=== PATIENT | male | born 1935 | race African-American/Black ===

== ENCOUNTER 2020-03-23 09:02 | Emergency (ER) | payer MEDICARE, OTHER ==
[2020-03-23] MEDS ORDERED: Acetaminophen 325 MG TAB ONE (09:35)
[2020-03-23] MEDS ORDERED: Ibuprofen 200 MG TAB ONE (09:35)
--- NOTE | 2020-03-23 09:53 | RAD ---
EXAM: 2 views of the right hip HISTORY: Right hip pain after fall COMPARISON: Pelvic radiograph 03/23/2020 FINDINGS: 2 views of the right hip shows questionable disruption of the lateral cortex in the region of the femoral neck. Mild hip degenerative changes are seen. No soft tissue swelling is present. Vascular calcifications are seen. Degenerative changes are seen in the lumbar spine. IMPRESSION: Possible right femoral neck fracture. A CT the right hip is recommended for further evalu ation.
--- NOTE | 2020-03-23 09:55 | RAD ---
Exam: Single view of the pelvis HISTORY: Right hip pain after fall 10 days ago COMPARISON: None FINDINGS: A single view the pelvis shows a questionable overlap of the lateral cortex of the femoral neck which could represent a minimally displaced fracture. No dislocation is seen. Mild degenerative changes are seen in both hips. Moderate degenerative changes are seen in the lumbar spin e. Vascular calcifications are seen. IMPRESSION: Possible right femoral neck fracture. A CT of the right hip is recommended for further ev aluation.
--- NOTE | 2020-03-23 11:18 | CT ---
EXAM: CT right hip without contrast HISTORY: Right hip pain after fall 2010 days ago COMPARISON: Pelvic and hip radiographs 03/23/2020 TECHNIQUE: Multiple contiguous axial images were obtained and a CT of the right hip without contrast. Sagittal and coronal reformats were performed. FINDINGS: No pelvic or hip fractures are seen. . There are mild degenerative changes in the right hi p. Atherosclerotic calcifications are seen. The visualized intrapelvic structures are unremarkable. Ther e is mild soft tissue swelling overlying the greater trochanter. IMPRESSION: No evidence of hip fracture.
== END 2020-03-23 11:36 | disposition home or self-care (01) ==
LOC: ERS 09:02
DX: S70.01XA Contusion of right hip, initial encounter (principal); E78.5 Hyperlipidemia, unspecified; E11.9 Type 2 diabetes mellitus without complications; I10 Essential (primary) hypertension; W01.10XA Fall on same level from slipping, tripping and stumbling with subsequent striking against unspecified object, initial encounter
CPT/HCPCS: 72170

== ENCOUNTER 2022-01-31 10:22 | Inpatient (IN) | payer MEDICARE, OTHER ==
[2022-01-31 12:13] LABS: #Eosinphils 0.1 thou/uL (0.0-0.7); #Lymphocytes 1.4 thou/uL (1.20-3.40); #Monocytes 0.6 thou/uL (0.11-0.59); #Neutrophils 4.7 thou/uL (1.40-6.50); %Basophils 0.4 % (0.0-1.0); %Eosinophils 1.8 % (0.0-10.0); %Monocytes 8.3 % (0.0-10.0); %Neutrophils 69.5 % (42.0-75.0); Hemoglobin 11.9 g/dL (14.0-18.0); Mean Corpuscular HGB CONC 32.1 g/dL (32.0-36.0); Mean Corpuscular Hemoglobin 30.3 pg (27.0-31.0); Mean Corpuscular Volume 94.5 fl (78.0-98.0); Mean Platelet Volume 8.8 fL (7.4-10.4); Platelet Count 126 thou/uL (130-400); RBC Distribution Width 11.3 % (11.5-14.5); Red Blood Cell (RBC) Count 3.93 mill/uL (4.70-6.10); White Blood Cell (WBC) Count 6.8 thou/uL (4.8-10.8)
[2022-01-31 12:36] LABS: ALT (SGPT) 41 U/L (8-55); AST (SGOT) 47 U/L (5-34); Albumin 4.1 g/dL (3.4-4.8); Alkaline Phosphatase 66 U/L (40-110); Anion Gap 16 mmol/L (10-20); BUN (Urea Nitrogen) 19 mg/dL (8.4-25.7); Bilirubin, Total 0.9 mg/dL (0.2-1.2); CK (CPK) 190 U/L (30-200); Calc. Creatinine Clearance 0 mL/min (70-130); Calcium 9.8 mg/dL (7.8-10.44); Carbon Dioxide 24 mmol/L (23-31); Chloride 108 mmol/L (98-107); Estimated GFR 55; Globulin 3.4 g/dL (2.4-3.5); Glucose 67 mg/dL (83-110); Lipase 36 U/L (8-78); Potassium 3.8 mmol/L (3.5-5.1); Protein, Total 7.5 g/dL (5.8-8.1); Sodium 144 mmol/L (136-145)
[2022-01-31] MEDS ORDERED: hydrALAZINE 20 MG/ML VIAL ONE (12:36)
[2022-01-31 13:36] LABS: SARS-CoV-2 NAA Rapid Test Not Detected (NotDetected)
[2022-01-31 13:37] LABS: Bacteria/HPF None Seen HPF (None Seen); Bilirubin Negative (Negative); Blood, Urine 3+ (Negative); Clarity Turbid (Clear); Glucose, Urine (Dipstick) Normal (Negative); Ketone, Urine Trace mg/dL (Negative); Leukocyte 75 Leu/uL (Negative); Nitrite Negative (Negative); Protein, Urine (Dipstick) Negative (Neg-Trace); RBC/HPF Greater than 50 HPF (0-3); Specific Gravity, Urine 1.008 (1.002-1.036); Squamous Epithelial 0-3 HPF (0-3); Urobilinogen Normal mg/dL (Less than 2); pH, Urine 7.5 (5.0-9.0)
[2022-01-31] MEDS ORDERED: Ondansetron ODT 4 MG TAB PO PRN (15:50)
[2022-01-31] MEDS ORDERED: Acetaminophen 325 MG TAB PO PRN (15:50)
[2022-01-31] MEDS ORDERED: Ondansetron PF 4 MG/2 ML Vial IVP PRN (15:50)
[2022-01-31] MEDS ORDERED: Acetaminophen 650 MG Suppository PR PRN (15:50)
[2022-01-31 17:08] LABS: Hemoglobin A1c 5.1 % (4.0-6.0)
[2022-01-31 17:25] VITALS: BMI 17.2
[2022-01-31] MEDS ORDERED: Lactated Ringer's 1,000 ML IV SCH (17:30)
[2022-01-31 18:19] LABS: Troponin I 0.028 ng/mL (< 0.028)
[2022-01-31] MEDS: Atorvastatin Calcium 40 MG TAB PO SCH (21:45)
[2022-01-31] MEDS: Metoprolol Tartrate 100 MG TAB PO SCH (21:46)
[2022-02-01 05:10] LABS: #Eosinphils 0.1 thou/uL (0.0-0.7); #Monocytes 0.5 thou/uL (0.11-0.59); #Neutrophils 5.1 thou/uL (1.40-6.50); %Basophils 0.4 % (0.0-1.0); %Eosinophils 1.6 % (0.0-10.0); %Lymphocytes 14.9 % (21.0-51.0); %Monocytes 7.5 % (0.0-10.0); %Neutrophils 75.6 % (42.0-75.0); Hemoglobin 11.4 g/dL (14.0-18.0); Mean Corpuscular HGB CONC 31.4 g/dL (32.0-36.0); Mean Corpuscular Hemoglobin 29.7 pg (27.0-31.0); Mean Corpuscular Volume 94.6 fl (78.0-98.0); Mean Platelet Volume 9.1 fL (7.4-10.4); Platelet Count 167 thou/uL (130-400); RBC Distribution Width 11.4 % (11.5-14.5); Red Blood Cell (RBC) Count 3.84 mill/uL (4.70-6.10); White Blood Cell (WBC) Count 6.8 thou/uL (4.8-10.8)
[2022-02-01 05:25] LABS: Anion Gap 11 mmol/L (10-20); BUN (Urea Nitrogen) 25 mg/dL (8.4-25.7); Calc. Creatinine Clearance 28 mL/min (70-130); Calcium 9.2 mg/dL (7.8-10.44); Carbon Dioxide 29 mmol/L (23-31); Chloride 110 mmol/L (98-107); Estimated GFR 55; Glucose 84 mg/dL (83-110); Sodium 146 mmol/L (136-145)
[2022-02-01] MEDS ORDERED: FLU VACC QS2022-23(65YR UP)/PF 240 MCG/0.7 ML SYRINGE IM ONE (09:00)
[2022-02-01] MEDS ORDERED: Enoxaparin Sodium 40 MG/0.4 ML SYRINGE SC SCH (09:00)
[2022-02-01] MEDS ORDERED: hydrALAZINE 25 MG TAB PO SCH (09:00)
[2022-02-01] MEDS: Ferrous Sulfate 325 MG TAB PO SCH (10:22)
[2022-02-01] MEDS: Metoprolol Tartrate 100 MG TAB PO SCH ×2 (10:22→21:32)
[2022-02-01] MEDS: metFORMIN 500 MG TAB PO SCH (10:22)
[2022-02-01] MEDS: Multivit, Therapeutic 1 TAB PO SCH (10:22)
[2022-02-01] MEDS: Lisinopril 20 MG TAB PO SCH (10:22)
[2022-02-01] MEDS: Furosemide 20 MG TAB PO SCH (10:22)
[2022-02-01] MEDS: Potassium Chloride 20 MEQ TAB PO SCH (10:22)
[2022-02-01] MEDS: Senokot S 8.6-50 MG TAB PO SCH (10:22)
[2022-02-01] MEDS: Tamsulosin HCl 0.4 MG CAP PO SCH (10:23)
[2022-02-01] MEDS: Atorvastatin Calcium 40 MG TAB PO SCH (21:32)
[2022-02-02 08:10] LABS: Anion Gap 8 mmol/L (10-20); BUN (Urea Nitrogen) 27 mg/dL (8.4-25.7); Calc. Creatinine Clearance 27 mL/min (70-130); Calcium 8.6 mg/dL (7.8-10.44); Carbon Dioxide 29 mmol/L (23-31); Chloride 110 mmol/L (98-107); Estimated GFR 52; Glucose 89 mg/dL (83-110); Magnesium 1.8 mg/dL (1.6-2.6); Potassium 3.7 mmol/L (3.5-5.1); Sodium 143 mmol/L (136-145)
[2022-02-02] MEDS: Ferrous Sulfate 325 MG TAB PO SCH (09:48)
[2022-02-02] MEDS: Furosemide 20 MG TAB PO SCH (09:48)
[2022-02-02] MEDS: Metoprolol Tartrate 100 MG TAB PO SCH ×2 (09:48→20:27)
[2022-02-02] MEDS: Multivit, Therapeutic 1 TAB PO SCH (09:48)
[2022-02-02] MEDS: metFORMIN 500 MG TAB PO SCH (09:48)
[2022-02-02] MEDS: Lisinopril 20 MG TAB PO SCH (09:48)
[2022-02-02] MEDS: Enoxaparin Sodium 30 MG/0.3 ML SYRINGE SC SCH (09:48)
[2022-02-02] MEDS: Senokot S 8.6-50 MG TAB PO SCH (09:49)
[2022-02-02] MEDS: Tamsulosin HCl 0.4 MG CAP PO SCH (09:49)
[2022-02-02] MEDS: Potassium Chloride 20 MEQ TAB PO SCH (09:49)
[2022-02-02] MEDS: NIFEdipine XL 30 MG TAB PO SCH (09:49)
[2022-02-02] MEDS ORDERED: Lactated Ringer's 500 ML IV SCH (13:15)
[2022-02-02] MEDS: Atorvastatin Calcium 40 MG TAB PO SCH (20:27)
[2022-02-03 07:06] LABS: Anion Gap 12 mmol/L (10-20); BUN (Urea Nitrogen) 21 mg/dL (8.4-25.7); Calc. Creatinine Clearance 31 mL/min (70-130); Calcium 8.9 mg/dL (7.8-10.44); Carbon Dioxide 23 mmol/L (23-31); Chloride 109 mmol/L (98-107); Estimated GFR 63; Glucose 90 mg/dL (83-110); Potassium 3.9 mmol/L (3.5-5.1); Sodium 140 mmol/L (136-145)
[2022-02-03] MEDS: Potassium Chloride 20 MEQ TAB PO SCH (08:47)
[2022-02-03] MEDS: Senokot S 8.6-50 MG TAB PO SCH (08:47)
[2022-02-03] MEDS: Lisinopril 20 MG TAB PO SCH (08:47)
[2022-02-03] MEDS: Metoprolol Tartrate 100 MG TAB PO SCH ×2 (08:47→19:49)
[2022-02-03] MEDS: Ferrous Sulfate 325 MG TAB PO SCH (08:47)
[2022-02-03] MEDS: NIFEdipine XL 30 MG TAB PO SCH (08:48)
[2022-02-03] MEDS: Multivit, Therapeutic 1 TAB PO SCH (08:48)
[2022-02-03] MEDS: metFORMIN 500 MG TAB PO SCH (08:48)
[2022-02-03] MEDS: Furosemide 20 MG TAB PO SCH (08:48)
[2022-02-03] MEDS: Enoxaparin Sodium 30 MG/0.3 ML SYRINGE SC SCH (08:48)
[2022-02-03] MEDS: Tamsulosin HCl 0.4 MG CAP PO SCH (08:48)
[2022-02-03] MEDS: Atorvastatin Calcium 40 MG TAB PO SCH (19:49)
[2022-02-04 06:44] LABS: Anion Gap 12 mmol/L (10-20); BUN (Urea Nitrogen) 30 mg/dL (8.4-25.7); Calc. Creatinine Clearance 28 mL/min (70-130); Calcium 9.3 mg/dL (7.8-10.44); Carbon Dioxide 26 mmol/L (23-31); Chloride 108 mmol/L (98-107); Estimated GFR 53; Glucose 102 mg/dL (83-110); Sodium 142 mmol/L (136-145)
[2022-02-04] MEDS: Multivit, Therapeutic 1 TAB PO SCH (08:18)
[2022-02-04] MEDS: NIFEdipine XL 30 MG TAB PO SCH ×2 (08:18→10:05)
[2022-02-04] MEDS: Furosemide 20 MG TAB PO SCH (08:18)
[2022-02-04] MEDS: Senokot S 8.6-50 MG TAB PO SCH (08:18)
[2022-02-04] MEDS: Ferrous Sulfate 325 MG TAB PO SCH (08:18)
[2022-02-04] MEDS: Lisinopril 20 MG TAB PO SCH (08:18)
[2022-02-04] MEDS: metFORMIN 500 MG TAB PO SCH (08:18)
[2022-02-04] MEDS: Tamsulosin HCl 0.4 MG CAP PO SCH (08:18)
[2022-02-04] MEDS: Metoprolol Tartrate 100 MG TAB PO SCH ×2 (08:18→20:22)
[2022-02-04] MEDS: Potassium Chloride 20 MEQ TAB PO SCH (08:18)
[2022-02-04] MEDS: Enoxaparin Sodium 30 MG/0.3 ML SYRINGE SC SCH (08:18)
[2022-02-04] MEDS ORDERED: NIFEdipine XL 30 MG TAB PO SCH (09:30)
[2022-02-04 19:19] VITALS: TEMP 98
[2022-02-04] MEDS: Atorvastatin Calcium 40 MG TAB PO SCH (20:21)
[2022-02-05 07:06] LABS: Anion Gap 11 mmol/L (10-20); BUN (Urea Nitrogen) 28 mg/dL (8.4-25.7); Calc. Creatinine Clearance 29 mL/min (70-130); Calcium 9.3 mg/dL (7.8-10.44); Carbon Dioxide 25 mmol/L (23-31); Chloride 110 mmol/L (98-107); Estimated GFR 56; Glucose 93 mg/dL (83-110); Sodium 142 mmol/L (136-145)
[2022-02-05] MEDS: Enoxaparin Sodium 30 MG/0.3 ML SYRINGE SC SCH (08:25)
[2022-02-05] MEDS: NIFEdipine XL 30 MG TAB PO SCH (08:26)
[2022-02-05] MEDS: Lisinopril 20 MG TAB PO SCH (08:26)
[2022-02-05] MEDS: Senokot S 8.6-50 MG TAB PO SCH (08:26)
[2022-02-05] MEDS: Potassium Chloride 20 MEQ TAB PO SCH (08:26)
[2022-02-05] MEDS: Metoprolol Tartrate 100 MG TAB PO SCH (08:26)
[2022-02-05] MEDS: Furosemide 20 MG TAB PO SCH (08:26)
[2022-02-05] MEDS: Multivit, Therapeutic 1 TAB PO SCH (08:26)
[2022-02-05] MEDS: metFORMIN 500 MG TAB PO SCH (08:26)
[2022-02-05] MEDS: Tamsulosin HCl 0.4 MG CAP PO SCH (08:27)
[2022-02-05] MEDS: Ferrous Sulfate 325 MG TAB PO SCH (08:27)
[2022-02-05 08:46] VITALS: BP 131/73
== END 2022-02-05 16:35 | DRG 304 ==
LOC: ERS 10:22 → 2NO 13:20 → T4-A 02-03 10:47
PROVIDERS: ADMIT Family Medicine; ATTEND Family Medicine
DX: I16.0 Hypertensive urgency (principal); E43 Unspecified severe protein-calorie malnutrition; Z68.1 Body mass index [BMI] 19.9 or less, adult; E78.5 Hyperlipidemia, unspecified; N40.0 Benign prostatic hyperplasia without lower urinary tract symptoms; D69.6 Thrombocytopenia, unspecified; N18.31 Chronic kidney disease, stage 3a; I12.9 Hypertensive chronic kidney disease with stage 1 through stage 4 chronic kidney disease, or unspecified chronic kidney disease; Z66 Do not resuscitate; R62.7 Adult failure to thrive; D63.1 Anemia in chronic kidney disease; E11.22 Type 2 diabetes mellitus with diabetic chronic kidney disease; F03.90 Unspecified dementia, unspecified severity, without behavioral disturbance, psychotic disturbance, mood disturbance, and anxiety; Z20.822 Contact with and (suspected) exposure to COVID-19; Z90.49 Acquired absence of other specified parts of digestive tract; Z79.84 Long term (current) use of oral hypoglycemic drugs; Z79.899 Other long term (current) drug therapy
CPT/HCPCS: 36415; 36416; 70450; 71045; 80048; 80053; 81003; 81015; 82140; 82550; 83036; 83605; 83690; 83735; 83880; 84134; 84443; 84484; 85025; 87040; 93005; 96374; J0360; J1650; J7120